=== PATIENT | male | born 1945 | race Caucasian/White ===

== ENCOUNTER 2017-01-07 07:23 | Day surgery (SDC) | payer MEDICARE, OTHER ==
[~2017-01-07] VITALS: Ht 175.3 cm; Wt 78.5 kg
[2017-01-07] VITALS (8 sets, daily range): BP systolic 100–134; BP diastolic 58–80; PULSE 68–90; RESP 15–19; O2SAT 95–99
[~2017-01-07 07:23] MED LIST: ASPI-973 PO; LISI10TA PO; OXYC1TAB24 PO; TAMS0.4C98 PO; levoFLOXacin Inj 500 MG in IV Premix 1 EACH IV ONE
[2017-01-07] MEDS ORDERED: Ondansetron 2 mg/mL 2 mL Inj ONE (07:24)
[2017-01-07] MEDS ORDERED: Lidocaine PF 1% 30 mL Inj ONE (07:24)
[2017-01-07] MEDS ORDERED: Propofol 10,000 mCg/mL 20 mL Inj ONE (07:24)
[2017-01-07] MEDS ORDERED: Dexamethasone 4 mg/mL Inj ONE (07:24)
[2017-01-07] MEDS ORDERED: fentaNYL-PF 50 mCg/mL 2 mL Inj ONE (07:24)
[2017-01-07] MEDS: Lactated Ringer's 1,000 ML IV SCH ×2 (07:26→08:50)
--- NOTE | 2017-01-07 08:05 | PCM.HPANE ---
Patient Data Date of Service: Jan 07, 2017 Surgeon Admitting Provider: Attending Provider:Bebe Escobar MD Primary Care Physician:Roderick Ji MD Other Provider:Karly Conteh Anesthesia Reason for Visit Left Ureteral Stone Ht/WT & BMI Height (Feet): 5 Height (Inches): 9.00 Weight (Kilograms): 78.5 Body Mass Index 25.00 Allergies Coded Allergies: No Known Allergies (Unverified , 01/01/17) Past Anesthesia History Anesthesia History: Denies:: Abnormal Airway, Anesthesia Reactions, Difficult Intubation, Fam Anesthesia Reaction Diabetes History Hx Diabetes?: No MRSA MRSA: No Medications Blood Thinner: Aspirin Hypertension Medication: Yes Home Meds Incl Beta Verenice: No Reported Medications Tamsulosin (Flomax)0.4 Mg Capsule0.4 Mg PO DAILY Ref 0 01/01/17 oxyCODONE-Acetaminophen 5-325 mg 1 Each Tablet1 Tab PO Q4H PRN For Pain Ref 0 01/01/17 Lisinopril 10 Mg [id number] Mg PO DAILY 30 Days Ref 0 01/01/17 Aspirin 81 Mg [id number] Mg PO DAILY Ref 0 01/01/17 History History of ENT Problems?: No HEENT History: Denies:: Abnormal Airway Cataracts Difficult Intubation Dysphagia Glaucoma Hearing Problem Sinus Problem TMJ Denture Type: None Teeth Condition: Within Normal Limits Hx of Heart Problems?: Yes Cardiovascular History: Positive for:: Hypertension Denies:: AICD Abdominal Aortic Aneurism Atrial Fibrillation Cardiac Surgery Edema Heart Murmur Irregular Heartbeat Pacemaker Peripheral Vascular Hx of Respiratory Problem?: No Respiratory History: Denies:: Asthma COPD Emphysema Oxygen Administration Pneumonia Tuberculosis Use of C-PAP Machine Hx Neurologic Problems?: No Neurological History: Denies:: CVA Headaches Multiple Sclerosis Parkinson's Disease Seizures Hx of GI Problems?: No Hx of Problems?: Yes Genitourinary History: Positive for:: Kidney Stones (left stone current admission problem) Male Hx: Denies:: Prostate Problems Skin History: Denies:: History Skin Disorders? Pressure Ulcers Hx Musculoskeletal Problems?: No Musculoskeletal History: Denies:: Back Injury Fibromyalgia Joint Replacement Myasthenia Gravis Osteoarthritis Rheumatoid Arthritis Systemic Lupus Hx of Psycho/Social Problems?: No Psycho Social History: Denies:: Anxiety Hx Depression Hx Surgeries?: Yes (cystoscopy) Hx Any Other Health Problems?: No Other History: Denies:: Cancer Thyroid Disease History Blood Transfusions: Positive for:: Accept Blood Products? Denies:: Blood Transfusions Hx Diabetes: No Hx Alcohol Use: YesAlcoholic Drinks Per Day: 2 drinks dailyHx Substance Use: NoHave You Smoked inLast 12 mo: No (2 cigars daily) Stop/Bang S-Snoring: Do You Snore Loudly: No T-Tired: feel tired, fatigued: No O-Obsered: Observed not breath: No P-Blood Pressure: treated: Yes B- Body Mass Index > 35 kg/m2: No A- Age over 50: Yes N- Neck Large Circumference: No BIA Risk Assessment: Low Risk, <3 Yes Risk Assessment Category Category 1A: Patient has history of documented sleep apnea, and HAS NOT received any narcotic, sedative or anesthesia administration during this stay. Category 1B: Patient has history of documented sleep apnea, and HAS received any narcotic , sedative or anesthesia administration during this stay Category 2: Patient has SUSPECTED Obstructive Sleep Apnea, and HAS received any narcotic , sedative or anesthesia administration during this stay. Category 3: Patient has SUSPECTED Obstructive Sleep Apnea and HAS NOT received narcotic, sedative or anesthesia administration during this stay. Category 4: Outpatient in Procedural Areas with known sleep apnea or who screen positive for High Risk via the STOP/BANG questionnaire. Exam Exam Vital Signs Vital Signs Date Time Temp Pulse Resp B/P Pulse Ox O2 Delivery O2 Flow Rate FiO2 01/07/17 07:50 36.2 79 16 134/80 97 Room Air General Appearance: Alert, Oriented X3, Cooperative, No Acute Distress HEENT/AIRWAY: MP 2 Lungs: Clear to Auscultation, Normal Air Movement Heart: Exam Unremarkable, Regular Rate/Rhythm, No Murmurs/Rubs/Gallops Meds/Labs/Diagnostics Admission Meds Current Medications Lactated Ringer's (Lr) 1,000 ml @ 10 mls/hr Q24H IV Last administered on t 07:26; Start 01/07/17 at 05:00; Stop 01/11/17 at 08:59 Plan Impression Patient chart reviewed, patient interviewed and anesthestic plan with risks, benefits, and alternatives discussed, and informed consent obtained. NPO per Anesth. Guidelines: Yes ASA Physical Status: ASA2 Mod Systemic Disease Anesthetic Plan: GA Bene/Risks/Altern/Consents: Yes HP Complete Prior to Induction: Yes Homero Ace MD Jan 07, 2017 08:05
[2017-01-07] MEDS ORDERED: Lactated Ringer's 500 ML IV PRN (09:14)
[2017-01-07] MEDS ORDERED: Lactated Ringer's 1,000 ML IV SCH (09:14)
[2017-01-07] MEDS ORDERED: HYDROmorphone 1 mg/mL Inj IVPUSH PRN (09:15)
[2017-01-07] MEDS ORDERED: Atropine 0.4 mg/mL Inj IVPUSH PRN (09:15)
[2017-01-07] MEDS ORDERED: Ondansetron 2 mg/mL 2 mL Inj IVPUSH PRN (09:15)
[2017-01-07] MEDS ORDERED: Labetalol 5 mg/mL 4 mL Inj IV PRN (09:15)
[2017-01-07] MEDS ORDERED: EPHEDrine Sulfate 50 mg/mL Inj IVPUSH PRN (09:15)
[2017-01-07] MEDS ORDERED: fentaNYL-PF 50 mCg/mL 2 mL Inj IVPUSH PRN (09:15)
[2017-01-07] MEDS ORDERED: EPHEDrine Sulfate 50 mg/mL Inj IM PRN (09:15)
[2017-01-07] MEDS ORDERED: Albuterol 2.5 mg/3 mL Inhalation Solution NEB PRN (09:15)
[2017-01-07] MEDS ORDERED: Phenylephrine 10,000 mCg/mL Inj IVPUSH PRN (09:15)
[2017-01-07] MEDS ORDERED: Belladonna Alk-Opium 60 mg Rectal Suppository RECTAL ONE ×2 (09:17→09:24)
[2017-01-07] MEDS ORDERED: Ondansetron 8 mg ODT Tablet PO PRN (10:05)
[2017-01-07] MEDS ORDERED: HYDROcodone-APAP 5-325 mg Tablet PO PRN (10:05)
--- NOTE | 2017-01-07 10:24 | PCM.ANEP1 ---
Post Anesthesia PACU Phase 1 Assessment Date of Service: Jan 07, 2017 Vital Signs Vital Signs Date Time Temp Pulse Resp B/P Pulse Ox O2 Delivery O2 Flow Rate FiO2 01/07/17 10:15 79 15 120/59 96 Room Air 01/07/17 10:10 80 16 105/58 96 Room Air 01/07/17 10:05 90 19 100/63 95 Room Air 01/07/17 10:00 88 15 109/62 99 Room Air 01/07/17 07:50 36.2 79 16 134/80 97 Room Air Anesthetic Administered: GA Level of Alertness: Awake, talking PATIÑO's with Equal Strength: Yes Pain: No Nausea or Vomiting: No CV Function & Hydration Stable: Yes Airway Device: none Oxygen Delivery: Room Air Lungs: Clear to Auscultation, Normal Air Movement Dermatome Level: Full Sensation PACU Phase 2 Assessment Complications: No Follow up Care: No Patient Instructions Provided: N/A Homero Ace MD Jan 07, 2017 10:24
--- NOTE | 2017-01-07 20:07 | OP ---
[address] [address] OPERATIVE REPORT PATIENT: GABRIELLE MUÑOZ : 1945 MR#: [id number] ADMIT: 01/07/2017 JOB ID: [id number] DATE OF SURGERY: 01/07/2017 PROCEDURE: Left ureteroscopy, laser lithotripsy, basket stone extraction, double-J stent change. SURGEON: Bebe Escobar MD ANESTHESIA: General. PREOPERATIVE DIAGNOSIS(ES): 1. Left ureteral calculus. 2. History of left double-J stent placement with left renal colic. POSTOPERATIVE DIAGNOSIS(ES): 1. Left ureteral calculus. 2. History of left double-J stent placement with left renal colic. INDICATIONS: The patient is a pleasant 71-year-old gentleman with a history of left mid to distal ureteral calculus, seen approximately 10 days prior with setup by urology PA for ureteroscopy, stone extraction where possible. His anatomy was found to be difficult, with a large prostate which was friable as well as a narrow distal ureter. After some dilation we ultimately elected to place a temporizing stent and bring him back after passive dilation of his stone to facilitate better visualization en route to the stone itself. PROCEDURAL DETAIL: After appropriate informed consent was obtained, the patient was brought to the operating room. He received IV antibiotics prior to onset of the procedure. SCDs were placed. Adequate general anesthesia induced. He was carefully placed in dorsal lithotomy position. All pressure points were carefully padded. Cleaned, prepped, and draped in the usual sterile fashion. Rigid scope was introduced into the patient's bladder. Distal end of the stent was grasped. It was brought to the meatus. A guidewire was passed through the stent into good position with a curl in the renal pelvis. The stent itself was removed without difficulty. We were then able to get a rigid ureteroscope up to the level of the stone with much more facility and ease than previous attempts. There was minimal bleeding and less bleeding from the patient's proximal prostate. Once we encountered the stone, we were able to break this up into small pieces. Procurement Technician samples were handed off for stone analysis. The remainder of the stone was cleared out of the ureter and the ureter itself was cleared, leaving the safety wire in place. We then backloaded the safety wire through the rigid cystoscope and advanced a 6-Kyrgyz x 26 cm double-J stent over the wire under fluoroscopic and visual guidance, showing a good curl in the renal pelvis and a curl in the patient's bladder. There was a minimal amount of hematuria, which was irrigated out of his bladder. The string was left long outside of the patient's body. The bladder was drained. He was given a B and O suppository for postop comfort. He tolerated the procedure very well, was awakened, and taken in stable condition to the postanesthesia care unit. RONI
== END 2017-01-07 23:59 | disposition home or self-care (01) ==
LOC: SAS 07:23
PROVIDERS: ATTEND Urology
DX: N20.1 Calculus of ureter (principal); I10 Essential (primary) hypertension; F17.210 Nicotine dependence, cigarettes, uncomplicated; Z87.442 Personal history of urinary calculi; Z79.82 Long term (current) use of aspirin
CPT/HCPCS: 52356; 76000; 82360; C2617; J1100; J1885; J2405; J3010; J7120